=== PATIENT | male | born 1955 | race Caucasian/White ===

== ENCOUNTER 2022-01-25 10:25 | Emergency (ER) | payer MEDICARE ==
[~2022-01-25] VITALS: Ht 182.9 cm; Wt 83.9 kg
[2022-01-25] MEDS ORDERED: OXYC5 PO (13:12)
== END 2022-01-25 13:24 | disposition home or self-care (01) ==
LOC: ER 10:25
DX: M54.16 Radiculopathy, lumbar region (principal)
CPT/HCPCS: 72131; J1170; J1885

== ENCOUNTER → 2022-07-07 | Outpatient (CLI) | payer MEDICARE ==
[~2022-07-07] MED LIST: OXYC5 PO
[2022-07-08 13:43] LABS: Stool Occult Bld Immuno 1 Negative (NEGATIVE)
== END ==
LOC: LAB SHORT 09:45
PROVIDERS: Physician Assistant
DX: Z12.11 Encounter for screening for malignant neoplasm of colon (principal)
CPT/HCPCS: G0328

== ENCOUNTER → 2023-09-08 | Outpatient (CLI) | payer MEDICARE ==
[2023-09-09 12:06] LABS: Stool Occult Bld Immuno 1 Negative (NEGATIVE)
== END | disposition home or self-care (01) ==
LOC: LAB 12:15 → LAB SHORT 12:15
PROVIDERS: Physician Assistant
DX: Z12.11 Encounter for screening for malignant neoplasm of colon (principal)
CPT/HCPCS: G0328

== ENCOUNTER 2024-12-26 12:10 | Day surgery (SDC) | payer MEDICARE ==
[~2024-12-26] VITALS: Ht 180.3 cm; Wt 85.5 kg
[2024-12-26] VITALS (31 sets, daily range): BP systolic 110–144; BP diastolic 63–88
[~2024-12-26 12:10] MED LIST changes: +AMLO10 PO; +B COMPLEX FORM0.4 MG PO; +BERBERINE500 MG PO; +Cyclobenzaprine5 MG PO; +DEPO-TESTO200 MG/1 M IM; +ERGO400 PO; +LIDO700A20 TOP; +MAG GLYCINATE100 MG PO; +METF500 PO; +ROPI1 PO; +SPIR25 PO; +TOCO1000 PO; +TOUJEO MAX300 UNIT/2 SC
--- NOTE | 2024-12-26 14:22 | NUR ---
12/26/24 1422 Hattie Huston CONFIRMED AND REVIEWED H&P, MEDCICATIONS, ALLERGIES, MEDICAL HISTORY, RESPIRATORY HISTORY, VITAL SIGNS, 3-LEAD EKG, CONSENTS, AND PHYSICIAN ORDERS. PATIENT CONFIRMS NPO STATUS AND AGREES WITH SCHEDULED PROCEDURE. MONITOR INTACT WITH CONTINUOUS PULSE OXIMETRY, CAPNOGRAPHY, 3-LEAD EKG, INTERMITTENT BP. SUPPLEMENTAL O2 TO BE TITRATED THROUGHOUT PROCEDURE TO MAINTAIN O2 SATURATION ABOVE 90%. PATIENT DETERMINED TO BE ASA APPROPRIATE FOR PROPOFOL SEDATION PRIOR TO START OF PROCEDURE BY DR. CHOWDHURY.
--- NOTE | 2024-12-26 15:37 | NUR ---
Patient up to Ambulate independently. Gait steady. Discharge instructions reviewed with patient. Patient verbalizes understanding. Copy given to patient to take home. Patient States Post-Procedure ride home has been arranged. Discharged via wheelchair to private car for ride home. PT TOLERATING PO, REPORTS READY TO GO HOME.
== END 2024-12-26 15:37 | disposition home or self-care (01) ==
LOC: ORSCMMR 12:10 → ORD 13:30 → ORSCMMR 13:30
PROVIDERS: Family Medicine
PROC: 0DBL8ZX Excision of Transverse Colon, Via Natural or Artificial Opening Endoscopic, Diagnostic (ICD-10-PCS; principal; 2024-12-26 13:30)
DX: Z12.11 Encounter for screening for malignant neoplasm of colon (principal); D12.3 Benign neoplasm of transverse colon; K57.30 Diverticulosis of large intestine without perforation or abscess without bleeding; E11.22 Type 2 diabetes mellitus with diabetic chronic kidney disease; I12.9 Hypertensive chronic kidney disease with stage 1 through stage 4 chronic kidney disease, or unspecified chronic kidney disease; N18.31 Chronic kidney disease, stage 3a; Z79.84 Long term (current) use of oral hypoglycemic drugs; Z79.4 Long term (current) use of insulin; Z87.891 Personal history of nicotine dependence
CPT/HCPCS: 82947; 88305; J2704; J7120